=== PATIENT | female | born 1960 | race Caucasian/White ===

== ENCOUNTER 2018-05-27 07:13 | Outpatient (CLI) | payer OTHER ==
[~2018-05-27 07:13] MED LIST: IOPHEN DM-100 MG/5 M PO; SIMVASTATIN20 MG PO
== END 2018-05-27 07:23 | disposition home or self-care (01) ==
LOC: LAB 07:13
DX: E78.2 Mixed hyperlipidemia (principal); R03.0 Elevated blood-pressure reading, without diagnosis of hypertension; Z13.1 Encounter for screening for diabetes mellitus; Z12.11 Encounter for screening for malignant neoplasm of colon; C57.4 Malignant neoplasm of uterine adnexa, unspecified

== ENCOUNTER 2018-06-07 08:50 | Outpatient (CLI) | payer OTHER | END 2018-06-07 09:03 | disposition home or self-care (01) | LOC: LAB 08:50 | DX: Z11.9 Encounter for screening for infectious and parasitic diseases, unspecified (principal) ==

== ENCOUNTER 2018-08-03 08:00 | Outpatient (CLI) | payer OTHER | END 2018-08-03 08:07 | disposition home or self-care (01) | LOC: LAB 08:00 | DX: E78.2 Mixed hyperlipidemia (principal); C54.3 Malignant neoplasm of fundus uteri; Z12.11 Encounter for screening for malignant neoplasm of colon ==

== ENCOUNTER 2018-08-09 08:21 | Outpatient (CLI) | payer OTHER | END 2018-08-09 08:24 | disposition home or self-care (01) | LOC: MAMO-SONO 08:21 | DX: Z12.31 Encounter for screening mammogram for malignant neoplasm of breast (principal) ==

== ENCOUNTER 2018-08-19 07:13 | Outpatient (CLI) | payer OTHER | END 2018-08-19 07:20 | disposition home or self-care (01) | LOC: TOM 07:13 | DX: C54.3 Malignant neoplasm of fundus uteri (principal) ==

== ENCOUNTER 2019-01-03 07:03 | Outpatient (CLI) | payer OTHER | END 2019-01-03 08:36 | disposition home or self-care (01) | LOC: LAB 07:03 | DX: E78.2 Mixed hyperlipidemia (principal); R73.03 Prediabetes ==

== ENCOUNTER 2019-04-19 07:40 | Outpatient (CLI) | payer OTHER | END 2019-04-19 07:57 | disposition home or self-care (01) | LOC: LAB 07:40 | DX: R00.2 Palpitations (principal); Z13.6 Encounter for screening for cardiovascular disorders ==

== ENCOUNTER 2019-07-31 13:22 | Outpatient (CLI) | payer OTHER | END 2019-07-31 14:00 | disposition home or self-care (01) | LOC: NUCLEAR 13:22 | DX: R00.2 Palpitations (principal) ==

== ENCOUNTER 2019-08-06 07:33 | Outpatient (CLI) | payer OTHER | END 2019-08-06 07:40 | disposition home or self-care (01) | LOC: LAB 07:33 | DX: D64.89 Other specified anemias (principal); R10.84 Generalized abdominal pain; E78.49 Other hyperlipidemia ==

== ENCOUNTER 2019-09-26 13:09 | Outpatient (CLI) | payer OTHER | END 2019-09-26 13:11 | disposition home or self-care (01) | LOC: MAMO-SONO 13:09 | DX: C51.1 Malignant neoplasm of labium minus (principal) ==

== ENCOUNTER 2020-06-03 10:00 | Outpatient (CLI) | payer OTHER | END 2020-06-03 15:49 | disposition home or self-care (01) | LOC: PPH VACUNA 10:00 | DX: Z23 Encounter for immunization (principal) ==

== ENCOUNTER 2020-07-07 14:21 | Outpatient (CLI) | payer OTHER | END 2020-07-07 14:28 | disposition home or self-care (01) | LOC: RAD 14:21 | PROVIDERS: ATTEND General Practice | DX: J06.9 Acute upper respiratory infection, unspecified (principal) ==

== ENCOUNTER 2020-07-10 06:38 | Emergency (ER) | payer OTHER ==
[~2020-07-10] VITALS: Ht 157.5 cm; Wt 65.8 kg
[2020-07-10] MEDS ORDERED: ISOSORBIDE MONO10 MG PO (15:18)
== END 2020-07-10 16:09 | disposition home or self-care (01) ==
LOC: ER 06:38 → CPU-OBS 06:54 → ER 16:09
DX: I20.9 Angina pectoris, unspecified (principal); R07.89 Other chest pain
CPT/HCPCS: G0378; G0379; 93005

== ENCOUNTER → 2020-07-28 07:32 | Outpatient (CLI) | payer OTHER ==
[~2020-07-28 07:32] MED LIST changes: +ISOSORBIDE MONO10 MG PO
== END | disposition home or self-care (01) ==
LOC: LAB 07:32
PROVIDERS: ATTEND Internal Medicine
DX: D64.89 Other specified anemias (principal); R10.84 Generalized abdominal pain; E78.49 Other hyperlipidemia; R80.8 Other proteinuria; E11.9 Type 2 diabetes mellitus without complications; R73.09 Other abnormal glucose

== ENCOUNTER 2020-12-23 06:57 | Outpatient (CLI) | payer OTHER | END 2020-12-23 06:58 | disposition home or self-care (01) | LOC: LAB 06:57 | PROVIDERS: ATTEND Internal Medicine Cardiovascular Disease | DX: I10 Essential (primary) hypertension (principal); E11.9 Type 2 diabetes mellitus without complications; E03.8 Other specified hypothyroidism; E78.2 Mixed hyperlipidemia; E55.9 Vitamin D deficiency, unspecified; I25.10 Atherosclerotic heart disease of native coronary artery without angina pectoris ==

== ENCOUNTER 2020-12-23 07:36 | Outpatient (CLI) | payer OTHER | END 2020-12-23 07:51 | disposition home or self-care (01) | LOC: MAMO-SONO 07:36 | PROVIDERS: ATTEND Internal Medicine Cardiovascular Disease | DX: N64.59 Other signs and symptoms in breast (principal); N63.11 Unspecified lump in the right breast, upper outer quadrant ==

== ENCOUNTER → 2021-07-06 07:15 | Outpatient (CLI) | payer OTHER | END | disposition home or self-care (01) | LOC: LAB 07:15 | PROVIDERS: ATTEND Obstetrics & Gynecology | DX: N95.1 Menopausal and female climacteric states (principal); E04.1 Nontoxic single thyroid nodule; E55.9 Vitamin D deficiency, unspecified; E78.01 Familial hypercholesterolemia ==

== ENCOUNTER 2021-07-13 15:59 | Outpatient (CLI) | payer OTHER | END 2021-07-13 16:06 | disposition home or self-care (01) | LOC: RAD 15:59 | PROVIDERS: ATTEND General Practice | DX: R07.89 Other chest pain (principal); J20.8 Acute bronchitis due to other specified organisms ==

== ENCOUNTER → 2021-07-15 09:02 | Outpatient (CLI) | payer OTHER | END | disposition home or self-care (01) | LOC: LAB 09:02 | PROVIDERS: ATTEND Obstetrics & Gynecology | DX: E04.1 Nontoxic single thyroid nodule (principal); N95.1 Menopausal and female climacteric states; E28.39 Other primary ovarian failure; E78.00 Pure hypercholesterolemia, unspecified; E55.9 Vitamin D deficiency, unspecified ==

== ENCOUNTER 2021-08-23 08:00 | Outpatient (CLI) | payer OTHER | END 2021-08-23 08:30 | disposition home or self-care (01) | LOC: PPH VACUNA 08:00 | PROVIDERS: ATTEND Emergency Medicine Pediatric Emergency Medicine | DX: Z23 Encounter for immunization (principal) ==

== ENCOUNTER 2021-08-31 23:30 | Emergency (ER) | payer OTHER ==
[~2021-08-31] VITALS: Ht 154.9 cm; Wt 61.2 kg
== END 2021-09-01 05:44 | disposition home or self-care (01) ==
LOC: ER 23:30
DX: B34.9 Viral infection, unspecified (principal); R50.9 Fever, unspecified; Z11.52 Encounter for screening for COVID-19

== ENCOUNTER 2021-12-07 07:10 | Outpatient (CLI) | payer OTHER | END 2021-12-07 07:16 | disposition home or self-care (01) | LOC: LAB 07:10 | PROVIDERS: ATTEND Internal Medicine Cardiovascular Disease | DX: I10 Essential (primary) hypertension (principal); E11.9 Type 2 diabetes mellitus without complications; E03.9 Hypothyroidism, unspecified; E78.2 Mixed hyperlipidemia ==

== ENCOUNTER 2022-06-29 08:13 | Outpatient (CLI) | payer OTHER | END 2022-06-29 08:18 | disposition home or self-care (01) | LOC: MAMO-SONO 08:13 | PROVIDERS: ATTEND Surgery | DX: Z12.31 Encounter for screening mammogram for malignant neoplasm of breast (principal) ==

== ENCOUNTER 2022-07-04 09:30 | Outpatient (CLI) | payer OTHER | END 2022-07-04 09:35 | disposition home or self-care (01) | LOC: PPH VACUNA 09:30 | PROVIDERS: ATTEND Emergency Medicine Pediatric Emergency Medicine | DX: Z23 Encounter for immunization (principal) ==

== ENCOUNTER 2022-07-05 08:05 | Outpatient (CLI) | payer OTHER | END 2022-07-05 08:23 | disposition home or self-care (01) | LOC: RAD 08:05 | DX: J10.00 Influenza due to other identified influenza virus with unspecified type of pneumonia (principal) ==

== ENCOUNTER 2022-08-23 12:53 | Outpatient (CLI) | payer OTHER | END 2022-08-23 13:03 | disposition home or self-care (01) | LOC: PPH VACUNA 12:53 | PROVIDERS: ATTEND Emergency Medicine Pediatric Emergency Medicine | DX: Z23 Encounter for immunization (principal) ==

== ENCOUNTER 2022-09-16 20:02 | Emergency (ER) | payer OTHER ==
[~2022-09-16] VITALS: Ht 157.5 cm; Wt 66.2 kg
== END 2022-09-16 22:08 | disposition home or self-care (01) ==
LOC: ER 20:02
DX: J06.9 Acute upper respiratory infection, unspecified (principal); Z88.6 Allergy status to analgesic agent; Z88.0 Allergy status to penicillin

== ENCOUNTER 2022-12-23 07:36 | Outpatient (CLI) | payer OTHER | END 2022-12-23 07:39 | disposition home or self-care (01) | LOC: LAB 07:36 | PROVIDERS: ATTEND Internal Medicine Cardiovascular Disease | DX: E03.9 Hypothyroidism, unspecified (principal); I10 Essential (primary) hypertension; E11.9 Type 2 diabetes mellitus without complications; E78.2 Mixed hyperlipidemia ==

== ENCOUNTER 2023-05-18 06:58 | Outpatient (CLI) | payer OTHER | END 2023-05-18 06:59 | disposition home or self-care (01) | LOC: LAB 06:58 | PROVIDERS: ATTEND Internal Medicine Cardiovascular Disease | DX: I10 Essential (primary) hypertension (principal); E11.9 Type 2 diabetes mellitus without complications; E78.2 Mixed hyperlipidemia; E03.9 Hypothyroidism, unspecified ==

== ENCOUNTER 2023-05-18 07:28 | Outpatient (CLI) | payer OTHER | END 2023-05-18 07:38 | disposition home or self-care (01) | LOC: PPH VACUNA 07:28 | PROVIDERS: ATTEND Emergency Medicine Pediatric Emergency Medicine | DX: Z23 Encounter for immunization (principal) | CPT/HCPCS: 90686; G0008 ==

== ENCOUNTER → 2023-07-04 | Outpatient (CLI) | payer OTHER | END | disposition home or self-care (01) | LOC: MAMO-SONO 08:21 | PROVIDERS: ATTEND Surgery | DX: Z12.31 Encounter for screening mammogram for malignant neoplasm of breast (principal); N60.11 Diffuse cystic mastopathy of right breast ==

== ENCOUNTER 2023-07-10 13:20 | Outpatient (CLI) | payer OTHER | END 2023-07-10 13:40 | disposition home or self-care (01) | LOC: RAD 13:20 | PROVIDERS: ATTEND General Practice | DX: J10.00 Influenza due to other identified influenza virus with unspecified type of pneumonia (principal); Z88.0 Allergy status to penicillin; Z88.6 Allergy status to analgesic agent ==

== ENCOUNTER 2023-08-14 15:11 | Emergency (ER) | payer OTHER ==
[~2023-08-14] VITALS: Ht 157.5 cm; Wt 67.1 kg
[2023-08-14 16:06] LABS: HEMATOCRIT 40.9 % (36.0-45.00); HEMOGLOBIN 13.7 g/dL (12.0-15.00); MEAN CORPUSCULAR HEMOGLOBIN 26.7 pg (27.00-32.0); MEAN CORPUSCULAR HGB CONC 33.4 g/dl (32.0-36.0); PLATELET COUNT 257 K/uL (150-450); RED BLOOD COUNT 5.11 M/uL (4.00-6.00); RED CELL DISTRIBUTION WIDTH 14.1 % (11.5-14.5)
[2023-08-14 16:54] LABS: ALBUMIN 3.8 gm/dL (3.4-5.0); BILIRUBIN TOTAL 0.31 mg/dL (0.3-1.2); CALCIUM 9.3 mg/dL (8.5-10.1); CREATININE SERUM 0.81 mg/dL (0.55-1.02); GFR 71.18; GLOBULINA 3.7 G/DL (2.4-3.5); POTASSIUM 3.79 mEq/L (3.5-5.1); TOTAL PROTEIN 7.5 gm/dL (6.4-8.2)
[2023-08-14] MEDS ORDERED: ZITHROMAX500 MG PO (17:47)
[2023-08-14] MEDS ORDERED: ZYRTEC10 MG PO (17:47)
[2023-08-14] MEDS ORDERED: GUAIFENESIN-DM 15 M1 PO (17:47)
[2023-08-14] MEDS ORDERED: FLONASE16 GM NASAL (17:47)
== END 2023-08-14 17:52 | disposition home or self-care (01) ==
LOC: ER 15:11
PROVIDERS: Nurse Practitioner Family
DX: J06.9 Acute upper respiratory infection, unspecified (principal); R03.0 Elevated blood-pressure reading, without diagnosis of hypertension; Z88.6 Allergy status to analgesic agent; Z88.0 Allergy status to penicillin

== ENCOUNTER 2023-10-01 06:45 | Outpatient (CLI) | payer OTHER ==
[~2023-10-01 06:45] MED LIST changes: +FLONASE16 GM NASAL; +GUAIFENESIN-DM 15 M1 PO; +ZITHROMAX500 MG PO; +ZYRTEC10 MG PO
[2023-10-01 07:50] LABS: URINE APPEARANCE Clear; URINE BILIRRUBIN Negative (NEGATIVE); URINE BLOOD Negative; URINE COLOR Yellow; URINE GLUCOSE Negative (NEGATIVE); URINE LEUKOCYTE Negative; URINE NITRATE Negative; URINE PROTEIN Negative (NEGATIVE); URINE UROBILINOGEN 0.2 E.U./dl
[2023-10-01 07:51] LABS: URINE EPITHELIAL CELLS 3.2 uL (0.0-38.8); URINE WBC 4.2 uL (0.0-23.2)
[2023-10-01 07:52] LABS: HEMATOCRIT 39.4 % (36.0-45.00); MEAN CELL VOLUME 80.1 fL (80.00-100.00); MEAN CORPUSCULAR HEMOGLOBIN 26.5 pg (27.00-32.0); MEAN CORPUSCULAR HGB CONC 33.1 g/dl (32.0-36.0); PLATELET COUNT 258 K/uL (150-450); RED BLOOD COUNT 4.92 M/uL (4.00-6.00); RED CELL DISTRIBUTION WIDTH 13.3 % (11.5-14.5)
[2023-10-01 08:40] LABS: ALBUMIN 3.9 gm/dL (3.4-5.0); BILIRUBIN TOTAL 0.46 mg/dL (0.3-1.2); CALCIUM 9.6 mg/dL (8.5-10.1); CHOL HDL RATIO 3.8 (0-5.0); CREATININE SERUM 0.67 mg/dL (0.55-1.02); GFR 88.61; GLOBULINA 3.4 G/DL (2.4-3.5); POTASSIUM 3.87 mEq/L (3.5-5.1); T4 TOTAL 7.28 UG/DL (4.8-13.9); TOTAL PROTEIN 7.3 gm/dL (6.4-8.2); TSH 1.32 uIU/mL (0.358-3.74)
[2023-10-01 10:45] LABS: T3 TOTAL 0.897 ng/ml (0.846-2.02); VITAMIN D3 25 HYDROXY 51.83 ng/ml (30-120)
== END 2023-10-01 14:43 | disposition home or self-care (01) ==
LOC: LAB 06:45
PROVIDERS: ATTEND Internal Medicine Cardiovascular Disease
DX: I10 Essential (primary) hypertension (principal); E11.9 Type 2 diabetes mellitus without complications; E03.9 Hypothyroidism, unspecified; E78.2 Mixed hyperlipidemia; E55.9 Vitamin D deficiency, unspecified

== ENCOUNTER 2023-10-05 14:24 | Outpatient (CLI) | payer OTHER | END 2023-10-05 14:33 | disposition home or self-care (01) | LOC: SONOGRAMA 14:24 | PROVIDERS: ATTEND Preventive Medicine Occupational Medicine | DX: M75.31 Calcific tendinitis of right shoulder (principal) ==

== ENCOUNTER 2024-04-29 15:05 | Outpatient (CLI) | payer OTHER | END 2024-04-29 15:19 | disposition home or self-care (01) | LOC: LAB 15:05 | PROVIDERS: ATTEND Preventive Medicine Occupational Medicine | DX: B19.10 Unspecified viral hepatitis B without hepatic coma (principal) ==

== ENCOUNTER 2024-10-25 07:52 | Outpatient (CLI) | payer OTHER ==
[2024-10-25 09:07] LABS: URINE APPEARANCE Clear; URINE BILIRRUBIN Negative (NEGATIVE); URINE BLOOD Negative; URINE COLOR Yellow; URINE GLUCOSE Negative (NEGATIVE); URINE KETONE Negative (NEGATIVE); URINE LEUKOCYTE Small; URINE NITRATE Negative; URINE PROTEIN Negative (NEGATIVE); URINE UROBILINOGEN 0.2 E.U./dl
[2024-10-25 09:08] LABS: HEMATOCRIT 41.2 % (36.0-45.00); HEMOGLOBIN 13.8 g/dL (12.0-15.00); MEAN CORPUSCULAR HEMOGLOBIN 26.5 pg (27.00-32.0); MEAN CORPUSCULAR HGB CONC 33.6 g/dl (32.0-36.0); PLATELET COUNT 290 K/uL (150-450); RED BLOOD COUNT 5.21 M/uL (4.00-6.00); RED CELL DISTRIBUTION WIDTH 14.2 % (11.5-14.5)
[2024-10-25 09:13] LABS: URINE BACTERIA 8.5 uL (0.0-1933); URINE EPITHELIAL CELLS 7.5 uL (0.0-38.8); URINE RBC 14.4 uL (0.0-20.8)
[2024-10-25 09:47] LABS: ALBUMIN 3.6 gm/dL (3.4-5.0); BILIRUBIN TOTAL 0.48 mg/dL (0.3-1.2); CALCIUM 9.5 mg/dL (8.5-10.1); CHOL HDL RATIO 3.9 (0-5.0); CREATININE SERUM 0.72 mg/dL (0.55-1.02); GFR 81.29; GLOBULINA 3.3 G/DL (2.4-3.5); POTASSIUM 4.61 mEq/L (3.5-5.1); T4 TOTAL 7.53 UG/DL (4.8-13.9); TOTAL PROTEIN 6.9 gm/dL (6.4-8.2); TSH 1.72 uIU/mL (0.358-3.74)
== END 2024-10-25 08:02 | disposition home or self-care (01) ==
LOC: LAB 07:52
PROVIDERS: ATTEND Internal Medicine Cardiovascular Disease
DX: I10 Essential (primary) hypertension (principal); E11.9 Type 2 diabetes mellitus without complications; E03.9 Hypothyroidism, unspecified; E78.2 Mixed hyperlipidemia

== ENCOUNTER → 2025-04-23 07:27 | Outpatient (CLI) | payer OTHER ==
[2025-04-23 08:13] LABS: BASO % 0.6 % (0.1-1.2); EOS # 0.44 (0.04-0.54); EOS % 6.3 % (0.7-7.0); LYMPH # 2.10 (1.18-3.74); LYMPH % 30.0 % (19.3-53.1); MEAN PLATELET VOLUME 10.20 fl (9.4-12.4); MONO # 0.38 (0.24-0.82); MONO % 5.4 % (4.7-12.5); NEUT # 4.04 (1.56-6.13); NEUT % 57.6 % (34.0-71.1); RED CELL DISTRIBUTION WIDTH 13.9 % (11.6-14.4)
[2025-04-23 08:21] LABS: URINE APPEARANCE Clear; URINE BILIRRUBIN Negative (NEGATIVE); URINE BLOOD Small; URINE COLOR Yellow; URINE GLUCOSE Negative (NEGATIVE); URINE KETONE Negative (NEGATIVE); URINE LEUKOCYTE Negative; URINE NITRATE Negative; URINE PROTEIN Negative (NEGATIVE); URINE UROBILINOGEN 0.2 E.U./dl
[2025-04-23 08:26] LABS: URINE BACTERIA 11.9 uL (0.0-1933); URINE EPITHELIAL CELLS 2.1 uL (0.0-38.8); URINE RBC 8.5 uL (0.0-20.8); URINE WBC 2.7 uL (0.0-23.2)
[2025-04-23 08:34] LABS: URINE CAST 0.00 uL (0.0-1.40)
[2025-04-23 09:19] LABS: ALT/SGPT 32.0 U/L (12-78); AST/SGOT 17.0 U/L (15-37); BILIRUBIN TOTAL 0.88 mg/dL (0.3-1.2); BUN CREA RATIO 25.0 (7.0-25.0); CHOL HDL RATIO 2.6 (0-5.0); CREATININE SERUM 0.72 mg/dL (0.55-1.02); GFR 81.04; GLOBULINA 3.3 G/DL (2.4-3.5); GLUCOSE FASTING 104.0 mg/dL (65-100); HDL 65.0 mg/dl (40-60); LDL 86.0 mg/dl (0-130); OSMOLALITY SERUM 285.0 MOSM/KG (275-295); T4 TOTAL 8.42 UG/DL (4.8-13.9); TSH 1.21 uIU/mL (0.358-3.74); VLDL 16.0 (0-39)
== END | disposition home or self-care (01) ==
LOC: LAB 07:27
PROVIDERS: ATTEND Internal Medicine Cardiovascular Disease
DX: I10 Essential (primary) hypertension (principal); E03.9 Hypothyroidism, unspecified; E78.2 Mixed hyperlipidemia; R73.03 Prediabetes

== ENCOUNTER 2025-06-24 14:34 | Outpatient (CLI) | payer OTHER | END 2025-06-24 14:44 | disposition home or self-care (01) | LOC: PPH VACUNA 14:34 | PROVIDERS: ATTEND Emergency Medicine Pediatric Emergency Medicine | DX: Z23 Encounter for immunization (principal) ==

== ENCOUNTER 2025-07-07 08:31 | Outpatient (CLI) | payer OTHER | END 2025-07-07 08:35 | disposition home or self-care (01) | LOC: MAMO-SONO 08:31 | PROVIDERS: ATTEND Surgery | DX: N60.11 Diffuse cystic mastopathy of right breast (principal); N60.12 Diffuse cystic mastopathy of left breast ==

== ENCOUNTER 2025-08-10 09:00 | Outpatient (CLI) | payer OTHER ==
[2025-08-11 10:07] LABS: HEPATITIS A ANTIBODY IGG Positive (Negative); HEPATITIS C VIRUS ANTIBODY Non Reactive (Non Reactive)
== END 2025-08-10 09:12 | disposition home or self-care (01) ==
LOC: LAB 09:00
DX: A64 Unspecified sexually transmitted disease (principal); B15.0 Hepatitis A with hepatic coma; B17.10 Acute hepatitis C without hepatic coma; R05.9 Cough, unspecified; R50.9 Fever, unspecified